=== PATIENT | female | born 1990 | race Caucasian/White ===

== ENCOUNTER 2018-09-05 19:06 | Emergency (ER) | payer BC ==
[2018-09-05 20:12] VITALS: BP 150/81
[2018-09-05] MEDS ORDERED: Sodium Chloride 0.9% 1,000 ML IV ONE (20:21)
[2018-09-05] MEDS ORDERED: Sodium Chloride 0.9% 10 ML Syringe FLUSH PRN (20:24)
[2018-09-05] MEDS ORDERED: HYDROmorphone 1 MG/ML Syringe IVPUSH ONE (20:24)
[2018-09-05] MEDS ORDERED: Ondansetron 4 MG/2 ML SDV IVPUSH ONE ×2 (20:24→22:09)
[2018-09-05] MEDS ORDERED: Metoclopramide 10 MG/2 ML SDV IVPUSH ONE (22:33)
--- NOTE | 2018-09-05 22:55 | EDM.PDOC ---
ED HPI GENERAL MEDICAL PROBLEM - General Chief Complaint: Abdominal Pain Stated Complaint: UPPER ABDOMINAL PAIN Time Seen by Provider: 09/05/18 20:45 Source of Information: Reports: Patient History Limitations: Reports: No Limitations - History of Present Illness INITIAL COMMENTS - FREE TEXT/NARRATIVE: 27-year-old female presents for evaluation and treatment of abdominal pain. Patient reports that the abdominal pain started today after coughing a durable this morning. Reports that the pain is in the right upper quadrant radiates into her chest and through to her back. She reports associated symptoms of nausea but no vomiting or shortness of breath. Reports her last bowel movement was yesterday. She is not appreciated blood in her stool. She's currently on her menstrual cycle. She does her urine is darker in color but has not appreciated any dysuria. Reports she continues to pass flatus. Patient reports that she did take some ibuprofen earlier which relieved her pain somewhat. She states that she's had this several times in the past. Normally resolves with ibuprofen and peppermint tea. She's never been evaluated for this. Reports she's had C-sections but has not had any other abdominal surgeries. Onset: Today Location: Reports: Abdomen (RUQ) Upper Abdomen Pain Score (Numeric/FACES): 6 - Related Data Allergies Allergy/AdvReac Type Severity Reaction Status Date / Time latex Allergy Rash Verified 03/04/16 09:11 Penicillins Allergy Rash Verified 03/04/16 09:11 Past Medical History [employer] History: Reports: , Spontaneous , Therapeutic - Past Surgical History HEENT Surgical History: Reports: Oral Surgery Female Surgical History: Reports: Section, D&C Social & Family History - Family History Family Medical History: Noncontributory - Tobacco Use Smoking Status *Q: Never Smoker - Caffeine Use Caffeine Use: Reports: Coffee - Recreational Drug Use Recreational Drug Use: No ED ROS GENERAL - Review of Systems Review Of Systems: See Below Constitutional: Reports: Decreased Appetite Respiratory: Denies: Shortness of Breath Cardiovascular: Denies: Chest Pain GI/Abdominal: Reports: Abdominal Pain, Nausea, Vomiting. Denies: Diarrhea : Denies: Dysuria ED EXAM, GI/ABD - Physical Exam Exam: See Below Exam Limited By: No Limitations General Appearance: Alert, WD/WN, No Apparent Distress Respiratory/Chest: No Respiratory Distress, Lungs Clear, Normal Breath Sounds Cardiovascular: Normal Peripheral Pulses, Regular Rate, Rhythm, No Murmur GI/Abdominal Exam: Normal Bowel Sounds, Soft, Tender (Right upper quadrant), Other (Positive Ulrich sign) Neurological: Alert, Oriented, Normal Cognition Psychiatric: Normal Affect, Normal Mood Skin Exam: Warm, Dry, Normal Color Course - Vital Signs Last Recorded V/S: Last Vital Signs Temp 97.4 F 09/05/18 19:12 Pulse 102 H 09/05/18 19:12 Resp 18 09/05/18 19:12 BP 150/81 H 09/05/18 20:09 Pulse Ox 99 09/05/18 19:12 - Orders/Labs/Meds Orders: Active Orders 24 hr Category Date Time Status Peripheral IV Care [RC] . DIRECTED Care 09/05/18 20:24 Active Abdomen 2V AP Flat Upright [CR] Stat Exams 09/05/18 21:00 Taken Abdomen Ltd [US] Stat Exams 09/05/18 21:00 Taken CULTURE URINE [RM] Stat Lab 09/05/18 19:15 Received Sodium Chloride 0.9% [Saline Flush] Med 09/05/18 20:24 Active 10 ml FLUSH ASDIRECTED PRN Peripheral IV Insertion Adult [OM.PC] Routine Oth 09/05/18 20:24 Ordered Medication Orders Sodium Chloride (Saline Flush) 10 ml FLUSH ASDIRECTED PRN PRN Reason: Keep Vein Open Last Admin: 09/05/18 20:29 Dose: 10 ml Labs: Laboratory Tests 09/05/18 09/05/18 09/05/18 Range/Units 20:15 20:15 20:15 WBC 5.60 (3.98-10.04) K/mm3 RBC 4.65 (3.98-5.22) M/mm3 Hgb 14.5 (11.2-15.7) gm/L Hct 42.4 (34.1-44.9) % MCV 91.2 (79.4-94.8) fl MCH 31.2 (25.6-32.2) pg MCHC 34.2 (32.2-35.5) g/dl RDW Std Deviation 42.4 (36.4-46.3) fL Plt Count 258 (182-369) K/mm3 MPV 9.8 (9.4-12.3) fl Neutrophils % (Manual) 47 (40-60) % Band Neutrophils % 0 (0-10) % Lymphocytes % (Manual) 46 H (20-40) % Atypical Lymphs % 0 % Monocytes % (Manual) 5 (2-10) % Eosinophils % (Manual) 2 (0.7-5.8) % Basophils % (Manual) 0 L (0.1-1.2) Platelet Estimate Adequate Plt Morphology Comment Normal RBC Morph Comment Normal Sodium (136-145) mEq/L Potassium (3.5-5.1) mEq/L Chloride (98-107) mEq/L Carbon Dioxide (21-32) mEq/L Anion Gap (5-15) BUN (7-18) mg/dL Creatinine (0.55-1.02) mg/dL Est Cr Clr Drug Dosing mL/min Estimated GFR (MDRD) (>60) mL/min BUN/Creatinine Ratio (14-18) Glucose (74-106) mg/dL Calcium (8.5-10.1) mg/dL Total Bilirubin (0.2-1.0) mg/dL GGT (5-55) U/L AST (15-37) U/L ALT (14-59) U/L Alkaline Phosphatase (46-116) U/L C-Reactive Protein (<1.0) mg/dL Total Protein (6.4-8.2) g/dl Albumin (3.4-5.0) g/dl Globulin gm/dL Albumin/Globulin Ratio (1-2) Lipase (73-393) U/L Urine Color Dark yellow (Yellow) Urine Appearance Clear (Clear) Urine pH 6.0 (5.0-8.0) Ur Specific [place] > or = 1.030 (1.005-1.030) Urine Protein 1+ H (Negative) Urine Glucose (UA) Negative (Negative) Urine Ketones Negative (Negative) Urine Occult Blood 3+ H (Negative) Urine Nitrite Negative (Negative) Urine Bilirubin 2+ H (Negative) Urine Urobilinogen 2.0 H (0.2-1.0) Ur Leukocyte Esterase 1+ H (Negative) Urine RBC 0-5 (0-5) /hpf Urine WBC 5-10 H (0-5) /hpf Ur Squamous Epith Cells 30-40 H (0-5) /hpf Urine Bacteria Few (FEW) /hpf Urine Mucus Many H (FEW) /hpf Urine HCG, Qual Negative (NEGATIVE) 09/05/18 09/05/18 Range/Units 20:15 20:15 WBC (3.98-10.04) K/mm3 RBC (3.98-5.22) M/mm3 Hgb (11.2-15.7) gm/L Hct (34.1-44.9) % MCV (79.4-94.8) fl MCH (25.6-32.2) pg MCHC (32.2-35.5) g/dl RDW Std Deviation (36.4-46.3) fL Plt Count (182-369) K/mm3 MPV (9.4-12.3) fl Neutrophils % (Manual) (40-60) % Band Neutrophils % (0-10) % Lymphocytes % (Manual) (20-40) % Atypical Lymphs % % Monocytes % (Manual) (2-10) % Eosinophils % (Manual) (0.7-5.8) % Basophils % (Manual) (0.1-1.2) Platelet Estimate Plt Morphology Comment RBC Morph Comment Sodium 139 (136-145) mEq/L Potassium 4.0 (3.5-5.1) mEq/L Chloride 106 (98-107) mEq/L Carbon Dioxide 26 (21-32) mEq/L Anion Gap 11.0 (5-15) BUN 14 (7-18) mg/dL Creatinine 0.8 (0.55-1.02) mg/dL Est Cr Clr Drug Dosing 85.83 mL/min Estimated GFR (MDRD) > 60 (>60) mL/min BUN/Creatinine Ratio 17.5 (14-18) Glucose 88 (74-106) mg/dL Calcium 9.0 (8.5-10.1) mg/dL Total Bilirubin 1.9 H (0.2-1.0) mg/dL GGT 264 H (5-55) U/L AST 644 H (15-37) U/L ALT 580 H (14-59) U/L Alkaline Phosphatase 153 H (46-116) U/L C-Reactive Protein 1.1 H* (<1.0) mg/dL Total Protein 7.3 (6.4-8.2) g/dl Albumin 4.1 (3.4-5.0) g/dl Globulin 3.2 gm/dL Albumin/Globulin Ratio 1.3 (1-2) Lipase 103 (73-393) U/L Urine Color (Yellow) Urine Appearance (Clear) Urine pH (5.0-8.0) Ur Specific [place] (1.005-1.030) Urine Protein (Negative) Urine Glucose (UA) (Negative) Urine Ketones (Negative) Urine Occult Blood (Negative) Urine Nitrite (Negative) Urine Bilirubin (Negative) Urine Urobilinogen (0.2-1.0) Ur Leukocyte Esterase (Negative) Urine RBC (0-5) /hpf Urine WBC (0-5) /hpf Ur Squamous Epith Cells (0-5) /hpf Urine Bacteria (FEW) /hpf Urine Mucus (FEW) /hpf Urine HCG, Qual (NEGATIVE) Meds: Medications Generic Name Dose Route Start Last Admin Trade Name Frecodi PRN Reason Stop Dose Admin Sodium Chloride 10 ml 09/05/18 20:24 09/05/18 20:29 Saline Flush FLUSH 10 ml ASDIRECTED PRN Administration Keep Vein Open Discontinued Medications Generic Name Dose Route Start Last Admin Trade Name Kortney PRN Reason Stop Dose Admin Hydromorphone HCl 1 mg 09/05/18 20:24 09/05/18 20:30 Dilaudid IVPUSH 09/05/18 20:25 1 mg ONETIME ONE Administration Sodium Chloride 1,000 mls @ 999 mls/hr 09/05/18 20:21 09/05/18 20:29 Normal Saline IV 09/05/18 21:21 999 mls/hr ONETIME ONE Administration Metoclopramide HCl 7.5 mg 09/05/18 22:33 09/05/18 22:40 Reglan IVPUSH 09/05/18 22:34 7.5 mg ONETIME ONE Administration Ondansetron HCl 4 mg 09/05/18 20:24 09/05/18 20:29 Zofran IVPUSH 09/05/18 20:25 4 mg ONETIME ONE Administration Ondansetron HCl 4 mg 09/05/18 22:09 09/05/18 22:19 Zofran IVPUSH 09/05/18 22:10 4 mg ONETIME ONE Administration - Radiology Interpretation Free Text/Narrative:: Abdomen: Supine and upright views of the abdomen were obtained. Bowel gas pattern appears normal. Metallic density is seen overlying the left mid abdomen presumably incidental. No free air is seen. Bony structures are unremarkable. IUD is present within the pelvis. Impression: 1. Findings which are felt to be incidental as noted above. Nothing acute is seen on 2 view abdominal x-ray. Right upper quadrant abdominal ultrasound impression per vrad shows an 8mm stone in the gallbladder and a slight dilated common bile duct at 7 mm. - Re-Assessments/Exams Free Text/Narrative Re-Assessment/Exam: 09/05/18 23:[address] Barnes, surgeon biomedical electronics technician. She recommend transfer to [facility] for an MRCP and she will likely need an ERCP. Spoke with Dr. Crum, gastroenterology with [facility] [place] they could accept the patient however, getting an MRCP here may say the patient a trip to [facility]. I discussed this with the patient. I gave her the option to go to [facility] for an MRCP and ERCP if she needs. I did advise her that if the MRCP negative she may have an unnecessary trip to [place]. I did offer to have her stay at hospital, however, I do not if they'll be able to get her in for an MRCP tomorrow and if this is positive she'll need to [facility] anyways. Patient elects to go to [facility]. I will send her by private vehicle. Spoke with Dr. Sutton, hospitalist on-call. He agrees to accept admission. Departure - Departure Time of Disposition: 23:39 Disposition: DC/Tfer to Acute Hospital 02 Condition: Fair Clinical Impression: Cholelithiasis, Common bile duct dilatation - Discharge Information *PRESCRIPTION DRUG MONITORING PROGRAM REVIEWED*: No *COPY OF PRESCRIPTION DRUG MONITORING REPORT IN PATIENT HEMAL: No Referrals: PCP,None [Primary Care Provider] - Forms: ED Department Discharge Additional Instructions: Go directly to the [facility]. Dr. Sutton, hospitalist has accepted you. Call [phone] if you have any questions. Call 911 en route for any emergencies. - My Orders Last 24 Hours: My Active Orders 09/05/18 19:15 CULTURE URINE [RM] Stat 09/05/18 20:24 Peripheral IV Care [RC] . DIRECTED Sodium Chloride 0.9% [Saline Flush] 10 ml FLUSH ASDIRECTED PRN Peripheral IV Insertion Adult [OM.PC] Routine 09/05/18 21:00 Abdomen 2V AP Flat Upright [CR] Stat Abdomen Ltd [US] Stat - Assessment/Plan Last 24 Hours: My Active Orders 09/05/18 19:15 CULTURE URINE [RM] Stat 09/05/18 20:24 Peripheral IV Care [RC] . DIRECTED Sodium Chloride 0.9% [Saline Flush] 10 ml FLUSH ASDIRECTED PRN Peripheral IV Insertion Adult [OM.PC] Routine 09/05/18 21:00 Abdomen 2V AP Flat Upright [CR] Stat Abdomen Ltd [US] Stat
[2018-09-05] MEDS ORDERED: HYDROmorphone 0.5 MG/0.5 ML Syringe IVPUSH ONE (23:30)
--- NOTE | 2018-09-06 07:32 | CR ---
Abdomen: Supine and upright views of the abdomen were obtained. Bowel gas pattern appears normal. Metallic density is seen overlying the left mid abdomen presumably incidental. No free air is seen. Bony structures are unremarkable. IUD is present within the pelvis. Impression: 1. Findings which are felt to be incidental as noted above. Nothing acute is seen on two-view abdominal x-ray. Diagnostic code #2
--- NOTE | 2018-09-06 07:32 | US ---
Limited abdominal ultrasound: Multiple real time images of the upper right abdomen were obtained. Comparison: No prior abdominal ultrasound, prior abdominal x-ray performed earlier on the same date (9:16 PM). Single gallstone is seen within the gallbladder measuring 8 mm. No gallbladder wall thickening is seen. Common bile duct measures at the upper limits of normal at 7 mm. Liver shows no focal abnormality. Right kidney shows no hydronephrosis or mass. Right kidney has a length of 11.2 cm. Pancreas is incompletely seen. Visualized portions of the pancreas are within normal limits. Inferior vena cava not well seen, portal vein shows normal hepatopedal flow. Impression: 1. Single gallstone with no gallbladder wall thickening. 2. Common bile duct measures at the upper limits of normal. 3. No additional abnormality is identified on right upper quadrant abdominal ultrasound. Diagnostic code #3 I agree with preliminary report from [facility], finalized on 09/05/18, 10:57 PM Central Time
== END 2018-09-05 23:47 ==
LOC: JD.ED 19:06
DX: K80.20 Calculus of gallbladder without cholecystitis without obstruction (principal); K83.8 Other specified diseases of biliary tract; Z88.0 Allergy status to penicillin; Z91.040 Latex allergy status; Z98.890 Other specified postprocedural states
CPT/HCPCS: 36415; 74019; 76705; 80053; 81001; 81025; 82977; 83690; 85007; 85027; 86140; 87086; 96361; 96374; 96375; 96376; 99285; J1170; J2405; J2765; J7040; 99284